=== PATIENT | male | born 1995 | race Caucasian/White ===

== ENCOUNTER 2019-01-04 06:18 | Day surgery (SDC) | payer BC ==
[2019-01-04] MEDS ORDERED: PROPOFOL 40 ML (07:55)
== END 2019-01-04 10:51 | disposition home or self-care (01) ==
LOC: GIL 06:18
DX: K64.8 Other hemorrhoids (principal); K29.50 Unspecified chronic gastritis without bleeding; B96.89 Other specified bacterial agents as the cause of diseases classified elsewhere; R19.7 Diarrhea, unspecified
CPT/HCPCS: 43239; 88305; 88312